=== PATIENT | male | born 1940 | race Caucasian/White ===

== ENCOUNTER 2016-07-14 08:28 | Inpatient (IN) | payer OTHER ==
[~2016-07-14] VITALS: Ht 180.3 cm; Wt 88.5 kg
--- NOTE | ~2016-07-14 | EKG ---
[place] [address] [facility] [place] [address] ELECTROCARDIOGRAM REPORT Name: JEFF BEAVER Room #: 310-P ADM IN M.R.#: [id number] Admission: 07/14/16 Attend Phys: Inderjit Bridges MD Discharge: Date of : 38 Report #: [id number] THIS REPORT FOR: //name// [facility] ED Test Date: 2016-07-14 Test Time: 08:34:16 Pat Name: JEFF BEAVER Department: Room: 310 Gender: M Mink Slicer: Rohith VILLALPANDO : 1940 Requested By: Melissa Watson Order Number: [id number] MD: Brennan Min Measurements Intervals [place] Rate: 86 P: 2 [place]: 174 QRS: -48 QRSD: 113 T: 136 QT: 418 QTc: 500 Interpretive Statements Sinus rhythm Probable left atrial enlargement Septal infarct, old LVH w/ repol abnormalities vs ischemia No previous ECG available for comparison Electronically Signed On 07-16-2016 7:32:47 CDT by Brennan Min [email or web address] <ELECTRONICALLY SIGNED> By: Brennan Min MD, [facility] 07/16/16 0732 3 3 Brennan Min MD, [facility] /EPI
--- NOTE | ~2016-07-14 | HC ---
[facility] [place] [address] CONSULTATION Name: JEFF BEAVER Room #: 310-P [facility] IN M.R.#: [id number] Admission: 07/14/16 Attend Phys: Inderjit Bridges MD Discharge: 07/16/16 Date of : 38 Report #: [id number] THIS REPORT FOR: //name// CC: Bayron Rivas DO Inderjit Bridges MD DATE OF SERVICE: 07/14/2016 REFERRING PROVIDER: Inderjit Bridges M.D. REASON FOR CONSULTATION: Shortness of breath and abnormal chest x-ray. HISTORY OF PRESENT ILLNESS: Our group was asked to see the patient in consultation while hospitalized at [facility], well known to me from prior office visits for mild obstructive lung disease and sleep apnea for which he has an orthotic device, which he has not been using, presents to the Emergency Department today with about 24 hours of increasing shortness of breath and some orthopnea. He denies any cough, chest pain, chest congestion, or wheezing. Tried his p.r.n. albuterol inhaler with no relief. Denies any other symptoms suggestive of a respiratory infection, no ill contacts. Has had some mild lower extremity edema. Presented to the Emergency Department. A chest x-ray revealed possible right mid lung infiltrate and pleural effusion on the right; however, also it appears that this right mid lung infiltrate may actually be fluid in the fissure. The patient also noted to have an elevated proBNP with a normal D-dimer, additional workup is pending. He feels better after some IV therapy in the ER, which included ceftriaxone and azithromycin. No diuretics or steroids noted. ALLERGIES: None known. PAST MEDICAL HISTORY: 1. History of aortic insufficiency and mitral regurgitation. 2. Hypertension. 3. Chronic obstructive pulmonary disease, not severe, typically just on p.r.n. albuterol. 4. History of prior mild cerebrovascular accident with minimal neurologic sequelae. 5. Noninsulin dependent diabetes mellitus type 2. 6. Obstructive sleep apnea, has a dental orthotic, which he p.r.n. 7. Prostatic hypertrophy. 8. Esophageal reflux. OUTPATIENT MEDICATIONS: Include finasteride, Levemir, metformin, glipizide, lisinopril, and hydrochlorothiazide. [address] [address] CONSULTATION Name: JEFF BEAVER Room #: 310-P DIS IN M.R.#: [id number] Admission: 07/14/16 Attend Phys: Inderjit Bridges MD Discharge: 07/16/16 Date of : 38 Report #: [id number] SOCIAL HISTORY: Ex-smoker, quit in 1974 with about one and a half pack per day tobacco use over 23 years. Rare alcohol consumption, currently lives independently. FAMILY HISTORY: Significant for father, who at 81 or cerebrovascular accident and pneumonia. Mother also had a CVA at 80. REVIEW OF SYSTEMS: CONSTITUTIONAL: Denies any fevers, chills, or sweats, change in weight or appetite. ENT: No upper respiratory congestion, rhinorrhea, or dysphagia. CARDIOVASCULAR: No chest pains or palpitations. GASTROINTESTINAL: No nausea, vomiting, diarrhea, constipation, or abdominal pain. GENITOURINARY: No dysuria, no frequency, or hematuria, known history of benign prostatic hypertrophy. INTEGUMENT: Denies any rash. MUSCULOSKELETAL: No other joint pains. No lower extremity edema and a current history of diabetes mellitus. PHYSICAL EXAMINATION: VITAL SIGNS: Afebrile, pulse 80, respiratory rate 12, blood pressure 160/85, and oxygen saturation 96% on room air. GENERAL: This is a pleasant elderly male, in no distress. HEENT: Clear oropharynx. No erythema. NECK: Supple, no lymphadenopathy. LUNGS: Relatively diminished, but clear. No wheezes or crackles. CARDIOVASCULAR: Regular. I could not appreciate any murmurs. ABDOMEN: Soft, nontender, no masses, no hepatosplenomegaly. EXTREMITIES: Only trace edema. They are warm with 2+ pulses. INTEGUMENT: No rash. LABORATORY DATA: White blood cell count 9000, hemoglobin 16, hematocrit 45, platelet count of 184, chemistry profile normal except for a glucose 236, troponin 0.12, BNP 5047. Chest x-ray as described. IMPRESSION: 1. Possible community-acquired pneumonia. To my view, radiographic findings more suggestive of pleural disease with maybe possible loculated pleural effusion. Would evaluate further with decubitus x-rays and consider CT of the chest and/or thoracentesis if clinically indicated. 2. Elevated BNP. Await echo and diuresis. 3. History of obstructive sleep apnea, currently on no therapy, has a dental orthotic, which he is not using at home. 4. Mild obstructive lung disease, no findings for significant bronchospasm on [facility] [address] [place] [address] CONSULTATION Name: JEFF BEAVER Room #: 310-P DIS IN M.R.#: [id number] Admission: 07/14/16 Attend Phys: Inderjit Bridges MD Discharge: 07/16/16 Date of : 38 Report #: [id number] exam today. 5. Diabetes mellitus type 2. SUGGESTIONS: 1. Continue Rocephin and azithromycin. 2. Await cultures. 3. Check decubitus radiographs of the chest. Consider CT imaging of the chest. 4. Await echo. 5. Further recommendations to follow. <ELECTRONICALLY SIGNED> By: Jack Graham MD 07/20/16 1807 1545 0058 Jack Graham MD /nt
--- NOTE | ~2016-07-14 | 2DMMODE ---
[facility] [place] [address] 2 D/M-MODE ECHOCARDIOGRAM Name: JEFF BEAVER Room #: 310-P [facility] IN [facility].#: [id number] Admission: 07/14/16 Attend Phys: Inderjit Bridges, Discharge: Date of : 38 Date of Service: 07/14/16 1711 Report #: [id number] THIS REPORT FOR: //name// APPROVED REPORT Study performed: 07/14/2016 14:09:43 EXAM: Comprehensive 2D, Doppler, and color-flow Echocardiogram Patient Location: Bedside Blood Pressure: 160/85 mmHg HR: 83 bpm Other Information Study Quality: Adequate Indications COPD Aortic Valve Disease Dyspnea Hypertension/HDD 2D Dimensions RVDd: 35.12 mm LVEF(%): 40.42 (>50%) IVSd: 12.26 (7-11mm) LVOT Diam: 23.42 (18-24mm) LVDd: 63.35 mm PWd: 12.30 (7-11mm) Ascending Aorta: 38.38 mm LVDs: 50.57 (25-40mm) IVC: 23.00 mm Aortic Root: 38.81 mm Mejia's LVEF: 40.42 % Volumes Left Atrial Volume (Systole) Single Plane 4CH: 108.12 mL Single Plane 2CH: 71.31 mL LA ESV Index: 48.00 mL/m2 Aortic Valve AoV Peak Newton.: 1.74 m/s AI PHT: 509.57 ms AO Peak Gr.: 12.15 mmHg LV Max P.94 mmHg LV Max: 0.99 m/s AI Vmax: 4.06 m/s AI Knott: 2.31 m/s2 [facility] [place] [address] [place] [address] 2 D/M-MODE ECHOCARDIOGRAM Name: JEFF BEAVER Room #: 310-P ADM IN .R.#: [id number] Admission: 07/14/16 Attend Phys: Inderjit Bridges, Discharge: Date of : 38 Date of Service: 07/14/16 1711 Report #: [id number] Mitral Valve MV PHT: 67.69 ms MV E Max Newton.: 0.75 m/s E/A Ratio: 0.9 MV A Newton.: 0.86 m/s MV Decel. Time: 233.42 ms Pulmonary Valve PV Peak Newton.: 0.97 m/s PV Peak Gr.: 3.78 mmHg Tricuspid Valve TR Peak Newton.: 3.23 m/s RAP Estimate: 10.00 mmHg TR Peak Gr.: 41.67 mmHg Left Ventricle Left ventricle is dilated. There is hypokinesis in the mid-apical anteroseptal wall. Mild concentric left ventricular hypertrophy. Left ventricular systolic function is moderately decreased. LVEF is 35%. Grade I - abnormal relaxation pattern. Right Ventricle The right ventricle is normal size. The right ventricular systolic function is normal. Atria Left atrium is dilated. The right atrium size is normal. Aortic Valve Aortic valve is trileaflet. Aortic valve is calcified. Mild aortic regurgitation. There is no aortic valvular stenosis. Mitral Valve The mitral valve is normal in structure. Mild mitral regurgitation. Tricuspid Valve The tricuspid valve is normal in structure. There is mild tricuspid regurgitation. The right atrial pressure is estimated at 10 mmHg. There is moderate pulmonary hypertension. The estimated PAP was 52 mmHg. Pulmonic Valve The pulmonary valve is normal in structure. Trace pulmonic regurgitation. Great Vessels There is mild aortic root dilation. IVC is normal in size and collapses <50% with inspiration. [address] [address] 2 D/M-MODE ECHOCARDIOGRAM Name: JEFF BEAVER Room #: 310-P [facility] IN .R.#: [id number] Admission: 07/14/16 Attend Phys: Inderjit Bridges, Discharge: Date of : 38 Date of Service: 07/14/16 1711 Report #: [id number] Pericardium There is no pericardial effusion. <Conclusion> Left ventricle is dilated. Left ventricular systolic function is moderately decreased. There is hypokinesis in the mid-apical anteroseptal wall. The right ventricle is normal size. Left atrium is dilated. Mild aortic regurgitation. Mild mitral regurgitation. There is mild tricuspid regurgitation. The right atrial pressure is estimated at 10 mmHg. There is moderate pulmonary hypertension. The estimated PAP was 52 mmHg. <ELECTRONICALLY SIGNED> By: Nathanael Hoffman MD 07/14/161710 10 10 Nathanael Hoffman MD /INF
[~2016-07-14 08:28] MED LIST: ADVAIR 100-501 EACH; FISH OIL 1,0001 EAC5; GLUCOPHAGE500 MG PO; GLUCOTROL5 MG PO; KLOR-CON 1010 MEQ; LISINOPRIL10 MG; METHOCARBAMOL500 M1; OMEPRAZOLE 20 M20 M1; SIMVASTATIN40 MG; TRIAMTERENE/HCT1 CA1
[2016-07-14 08:30] VITALS: BP 170/108
[2016-07-14 09:11] LABS: ABSOLUTE NEUTROPHILS 6.9 thou/uL (1.4-8.2); BASOPHILS 0.8 % (0.0-2.0); EOSINOPHILS 0.3 % (0.0-3.0); HEMATOCRIT 44.5 % (42.0-52.0); HEMOGLOBIN 15.8 gm/dL (14.0-18.0); LYMPHOCYTES 13.5 % (24.0-44.0); MCH 30.9 pg (26.0-34.0); MCHC 35.4 g/dL (28.0-37.0); MCV 87.1 fL (80.0-100.0); PLATELET COUNT 184 thou/uL (150-400); POLYS 80.4 % (36.0-66.0); RBC 5.11 mil/uL (4.50-6.00); RDW 13.7 % (10.5-14.5); WBC 8.6 thou/uL (4.0-11.0)
[2016-07-14 09:12] LABS: MANUAL DIFF NO
[2016-07-14 09:20] LABS: CALCIUM 8.2 mg/dL (8.5-10.1); CREATININE 0.9 mg/dL (0.7-1.3)
[2016-07-14 09:32] LABS: TROPONIN-I 0.12 ng/mL (<0.04-0.07)
[2016-07-14] MEDS ORDERED: GABAPENTIN 100100 MG PO (10:20)
[2016-07-14] MEDS ORDERED: LEVEMIR FL100 UNIT/2 SQ (10:20)
[2016-07-14] MEDS ORDERED: FLOMAX0.4 MG PO (10:21)
[2016-07-14] MEDS ORDERED: FLUTICASONE PRO16 GM NS (10:21)
[2016-07-14] MEDS ORDERED: VENTOLIN HFA 1818 GM INH (10:22)
[2016-07-14] MEDS ORDERED: LISINOPRIL40 MG PO (10:23)
[2016-07-14] MEDS ORDERED: HYDROCHLOROTHIA25 M2 PO (10:24)
[2016-07-14] MEDS ORDERED: ATORVASTATIN CA40 MG PO (10:28)
[2016-07-14] MEDS ORDERED: FINASTERIDE5 MG PO (10:28)
[2016-07-14 10:42] VITALS: BP 160/85
[2016-07-14 16:05] VITALS: BP 176/100
[2016-07-14 19:22] VITALS: BP 163/94
[2016-07-15 00:25] VITALS: BP 136/74
[2016-07-15 04:18] VITALS: BP 144/70
[2016-07-15 07:19] VITALS: BP 168/89
[2016-07-15 09:21] LABS: CALCIUM 8.6 mg/dL (8.5-10.1); CREATININE 0.9 mg/dL (0.7-1.3); POTASSIUM 3.9 mmol/L (3.5-5.1)
[2016-07-15 09:25] LABS: HEMATOCRIT 44.5 % (42.0-52.0); HEMOGLOBIN 15.4 gm/dL (14.0-18.0); MCH 30.9 pg (26.0-34.0); MCHC 34.7 g/dL (28.0-37.0); MCV 89.1 fL (80.0-100.0); RBC 4.99 mil/uL (4.50-6.00); RDW 13.6 % (10.5-14.5); WBC 7.9 thou/uL (4.0-11.0)
[2016-07-15 11:09] VITALS: BP 147/85
[2016-07-15 16:17] VITALS: BP 119/74
[2016-07-15 20:00] VITALS: BP 134/81
[2016-07-16 04:00] VITALS: BP 141/68
[2016-07-16 05:48] LABS: CALCIUM 8.8 mg/dL (8.5-10.1); CREATININE 1.1 mg/dL (0.7-1.3); POTASSIUM 3.8 mmol/L (3.5-5.1)
[2016-07-16] MEDS ORDERED: ASPIR 8181 MG PO (10:22)
[2016-07-16] MEDS ORDERED: LASIX 40 MG TAB40 M1 PO (10:22)
[2016-07-16 10:34] VITALS: BP 142/66
[2016-07-16 11:02] VITALS: BP 142/66
[2016-07-16] MEDS ORDERED: LEVAQUIN 750 M750 MG PO (11:11)
== END 2016-07-16 11:50 | disposition home or self-care (01) | DRG 291 ==
LOC: ER 08:28 → 3N 10:07 → EROBS 10:07 → 3N 10:54
PROVIDERS: Emergency Medicine; Internal Medicine; Internal Medicine Cardiovascular Disease
DX: I11.0 Hypertensive heart disease with heart failure (principal); J18.9 Pneumonia, unspecified organism; J90 Pleural effusion, not elsewhere classified; J44.0 Chronic obstructive pulmonary disease with (acute) lower respiratory infection; I50.21 Acute systolic (congestive) heart failure; I42.9 Cardiomyopathy, unspecified; E11.9 Type 2 diabetes mellitus without complications; G47.33 Obstructive sleep apnea (adult) (pediatric); K21.9 Gastro-esophageal reflux disease without esophagitis; E78.5 Hyperlipidemia, unspecified; N40.1 Benign prostatic hyperplasia with lower urinary tract symptoms; Z79.82 Long term (current) use of aspirin; Z86.73 Personal history of transient ischemic attack (TIA), and cerebral infarction without residual deficits; Z87.891 Personal history of nicotine dependence; Z90.49 Acquired absence of other specified parts of digestive tract; Z82.3 Family history of stroke; Z83.6 Family history of other diseases of the respiratory system; Z79.899 Other long term (current) drug therapy
CPT/HCPCS: 10096

== ENCOUNTER → 2016-08-05 | Outpatient (CLI) | payer OTHER ==
[~2016-08-05] VITALS: Ht 180.3 cm; Wt 87.1 kg
[~2016-08-05] MED LIST changes: +ASPIR 8181 MG PO; +ATORVASTATIN CA40 MG PO; +COREG6.25 MG PO; +FINASTERIDE5 MG PO; +FLOMAX0.4 MG PO; +FLUTICASONE PRO16 GM NS; +GABAPENTIN 100100 MG PO; +HYDROCHLOROTHIA25 M2 PO; +LASIX 40 MG TAB40 M1 PO; +LEVAQUIN 750 M750 MG PO; +LEVEMIR FL100 UNIT/2 SQ; +LISINOPRIL40 MG PO; +VENTOLIN HFA 1818 GM INH
--- NOTE | ~2016-08-05 | EKG ---
[facility] [place] [address] ELECTROCARDIOGRAM REPORT Name: JEFF BEAVER [id number] Admission: 08/05/16 Attend Phys: Nathanael Hoffman MD Discharge: Date of : 39 Report #: [id number] THIS REPORT FOR: //name// [facility] Test Date: 2016-08-05 Test Time: 07:07:31 Pat Name: JEFF BEAVER Department: Room: Gender: Order To Delivery Supervisor: Estelle BUTTERFIELD : 1940 Requested By: Nathanael Hoffman Order Number: [id number] MD: Brennan Min Measurements Intervals [place] Rate: 65 P: -19 [place]: 187 QRS: -54 QRSD: 125 T: 143 QT: 464 QTc: 483 Interpretive Statements Sinus rhythm Probable left atrial enlargement T wave abnormality, consider anterolateral ischemia Left ventricular hypertrophy Compared to ECG 07/14/2016 08:34:16 ST and T wave abnormality is slightly more prominent Electronically Signed On 08-06-2016 8:11:30 CDT by Brennan Min [email or web address] <ELECTRONICALLY SIGNED> By: Brennan Min MD, [facility] 08/06/16810 6 6 Brennan Min MD, [facility] /EPI
--- NOTE | ~2016-08-05 | CATHLAB ---
[facility] [address] [place] [address] INVASIVE PROCEDURE REPORT Name: SARANYAJEFF Africa Room #: REG [place]ane#: [id number] Admission: 08/05/16 Attend Phys: Nathanael Hoffman MD Discharge: Date of : 38 Date of Service: 08/05/16911 Report #: [id number] THIS REPORT FOR: //name// CC: Bayron Hoffman CARDIAC CATHETERIZATION REPORT INDICATIONS: Congestive heart failure, moderate LV dysfunction. Full risks, benefits and alternatives of cardiac catheterization were explained to the patient and all questions were answered. Informed consent was obtained. A Barbeau test was performed on the right radial artery. The right wrist area was prepped and draped in a sterile manner. Lidocaine was given subcutaneously. A 5-Niuean sheath was inserted into the right radial artery via modified Seldinger technique. Nitroglycerin and verapamil was injected through the sheath. 5000 units of heparin was introduced for peripheral IV. CORONARY ANATOMY: The LAD is calcified in the proximal area. The LAD travels down the anterior wall and wraps around the apex. There is a severe stenosis in the proximal segment of the LAD, 80%. After this stenosis, there is a takeoff of the first diagonal artery, with no flow-limiting lesions. The left circumflex supplies 1 moderate size obtuse marginal artery. In the proximal segment, there is a severe 70% stenosis. The RCA is a moderate to large size caliber vessel, dominant, as it supplies a PDA and several posterolateral branches. The RCA is calcified and tortuous. In the proximal segment of the RCA, there is an eccentric lesion, 70%. A left ventriculogram was not performed secondary to tortuosity involving the right subclavian artery. IMPRESSION: 1. Severe 3-vessel disease. 2. Known to have moderate segmental LV dysfunction with clinical evidence for heart failure. 3. Recommend surgical evaluation for surgery. <ELECTRONICALLY SIGNED> By: Nathanael Hoffman MD 08/06/16 0910 0912 1045 Nathanael Hoffman MD /nt
[2016-08-05 07:21] VITALS: BP 162/61
[2016-08-05 07:29] LABS: HEMATOCRIT 43.1 % (42.0-52.0); HEMOGLOBIN 15.3 gm/dL (14.0-18.0); MCH 31.1 pg (26.0-34.0); MCHC 35.4 g/dL (28.0-37.0); MCV 87.7 fL (80.0-100.0); RBC 4.92 mil/uL (4.50-6.00); RDW 13.4 % (10.5-14.5); WBC 6.2 thou/uL (4.0-11.0)
[2016-08-05 07:38] LABS: CALCIUM 8.2 mg/dL (8.5-10.1); POTASSIUM 4.2 mmol/L (3.5-5.1)
== END ==
LOC: CATH 06:31
PROVIDERS: Internal Medicine Cardiovascular Disease
DX: I50.1 Left ventricular failure, unspecified (principal); I50.9 Heart failure, unspecified

== ENCOUNTER 2016-08-17 21:59 | Inpatient (IN) | payer OTHER ==
[~2016-08-17] VITALS: Ht 180.3 cm; Wt 86.7 kg
--- NOTE | ~2016-08-17 | O ---
[facility] [place] [address] OPERATIVE REPORT Name: JEFF BEAVER Room #: 217-P [facility] IN M.R.#: [id number] Admission: 08/17/16 Attend Phys: Esther Booth Discharge: 08/24/16 Date of : 38 Report #: [id number] THIS REPORT FOR: //name// CC: Bayron Booth DATE OF SERVICE: 08/19/2016 PREOPERATIVE DIAGNOSIS: Coronary artery disease. POSTOPERATIVE DIAGNOSIS: Coronary artery disease. OPERATION: Coronary artery bypass x 4 including left internal mammary artery to left anterior descending artery, saphenous vein to diagonal and marginal and saphenous vein to posterior descending artery and endoscopic harvest, greater saphenous vein. SURGEON: Haroon Salas MD SCRATCH POLISHER: Seth. ANESTHESIA: General. INDICATIONS: The patient is a 75-year-old with coronary artery disease, catheterization presents important 3-vessel disease. FINDINGS AND TECHNIQUE: After general anesthesia was established, saphenous vein was harvested using an endoscopic approach and prepared for use as a conduit. Exposure was obtained through median sternotomy. Left internal mammary artery was harvested. Pericardial well was made. Cannulation sutures were placed. Heparin was given antegrade, then retrograde cardioplegia were given. Ice was poured in the pericardial well. The heart was stopped. During electromechanical arrest, the distal anastomoses were performed and end-to-side anastomosis was made between vein and the posterior descending artery. Cold cardioplegia was given. Separate segment of vein was sewn in end-to-side fashion to the marginal artery. Cold cardioplegia was given. Same segment of vein was sewn in saeq-ny-ggks fashion to the diagonal artery. Cold cardioplegia was given. Left internal mammary artery was sewn in end-to-side fashion to left anterior descending artery. Patency of this vessel was checked with the temperature technique. Cold cardioplegia was given. Two proximal anastomoses were performed. When this was complete, warm retrograde cardioplegia was given followed by warm continuous blood to the coronary sinus. When this infusion was complete, the crossclamp was removed, de-airing maneuvers were performed. The anastomoses were inspected and found to be satisfactory. [facility] [address] [place] [address] OPERATIVE REPORT Name: JEFF BEAVER Room #: 217-P [facility] IN M.R.#: [id number] Admission: 08/17/16 Attend Phys: Esther Booth Discharge: 08/24/16 Date of : 38 Report #: [id number] As the patient warmed, nice cardiac activity resumed, chest tubes and pacing wires were placed, a marker was placed around the proximal anastomoses. When the patient was warmed, he was weaned from cardiopulmonary bypass. Venous cannula was removed. Protamine was given, the aortic cannula was removed. Flows were measured in the bypass grafts and a good Doppler signal was audible in the internal mammary artery. When hemostasis was satisfactory, chest was irrigated with antibiotic solution and closed in the usual fashion. The patient was taken to the Intensive Care Unit in good condition having tolerated the procedure well. All counts reported as correct. By: 1003 1136 Haroon Salas MD /nt
--- NOTE | ~2016-08-17 | EKG ---
[address] [address] ELECTROCARDIOGRAM REPORT Name: SARANYAJEFF Africa Room #: 217-P ADM IN M.R.#: [id number] Admission: 08/17/16 Attend Phys: Esther Booth Discharge: Date of : 38 Report #: [id number] THIS REPORT FOR: //name// [facility] Test Date: 2016-08-23 Test Time: 07:40:43 Pat Name: JEFF BEAVER Department: Room: 217 P Gender: M Maternal Fetal Physician: SHELLY : 1940 Requested By: Nita Davies Order Number: [id number] MD: Jun Farfan Measurements Intervals [place] Rate: 65 P: 28 [place]: 172 QRS: -52 QRSD: 126 T: 124 QT: 479 QTc: 499 Interpretive Statements Sinus rhythm LVH with IVCD, LAD and secondary repol abnrm Electronically Signed On 08-24-2016 8:50:04 CDT by Jun Farfan [email or web address] <ELECTRONICALLY SIGNED> By: Jun Farfan MD 08/24/16 0850 0740 0740 Jun Farfan MD /CHRISTY
--- NOTE | ~2016-08-17 | EKG ---
[address] [place] [address] ELECTROCARDIOGRAM REPORT Name: JEFF BEAVER Room #: 217-P ADM IN M.R.#: [id number] Admission: 08/17/16 Attend Phys: Esther Booth Discharge: Date of : 38 Report #: [id number] THIS REPORT FOR: //name// [facility] ED Test Date: 2016-08-17 Test Time: 22:06:27 Pat Name: JEFF BEAVER Department: Room: 217 Gender: M Marking Stitcher: MIKIE : 1940 Requested By: Treva Chi Order Number: [id number] MD: Brennan Min Measurements Intervals [place] Rate: 103 P: 45 [place]: 180 QRS: -52 QRSD: 113 T: 112 QT: 356 QTc: 466 Interpretive Statements Sinus tachycardia LVH with IVCD, LAD and secondary repol abnrm Anterior ST elevation, probably due to LVH Compared to ECG 08/05/2016 07:07:[address] and T wave abnormality more pronounced Electronically Signed On 08-24-2016 7:19:29 CDT by Brennan Min [email or web address] <ELECTRONICALLY SIGNED> By: Brennan Min MD, [facility] 08/24/16 0719 05 Brennan Min MD, [facility] /EPI
--- NOTE | ~2016-08-17 | EKG ---
[address] [place] [address] ELECTROCARDIOGRAM REPORT Name: JEFF BEAVER Room #: 217-P ADM IN M.R.#: [id number] Admission: 08/17/16 Attend Phys: Esther Booth Discharge: Date of : 38 Report #: [id number] THIS REPORT FOR: //name// [facility] ED Test Date: 2016-08-17 Test Time: 23:24:55 Pat Name: JEFF BEAVER Department: Room: 217 Gender: M Supervisor Fur Floor Worker: REYNOLD : 1940 Requested By: Treva Chi Order Number: [id number] MD: Jun Farfan Measurements Intervals [place] Rate: 132 P: -48 [place]: 131 QRS: -63 QRSD: 140 T: 92 QT: 403 QTc: 597 Interpretive Statements Sinus or ectopic atrial tachycardia Left bundle branch block Baseline wander in lead(s) V2 Compared to ECG 08/05/2016 07:07:31 Left bundle-branch block now present Sinus rhythm no longer present T-wave abnormality no longer present Possible ischemia no longer present Left ventricular hypertrophy no longer present Electronically Signed On 08-24-2016 7:37:21 CDT by Jun Farfan [email or web address] <ELECTRONICALLY SIGNED> By: Jun Farfan MD 08/24/16 0737 2324 2324 Jun Farfan MD /EPI
--- NOTE | ~2016-08-17 | HC ---
[facility] [place] [address] CONSULTATION Name: SARANYAJEFF Africa Room #: 217-P [facility]..#: [id number] Admission: 08/17/16 Attend Phys: Esther Booth Discharge: 08/24/16 Date of : 38 Report #: [id number] THIS REPORT FOR: //name// CC: Bayron Booth DATE OF SERVICE: 08/21/2016 HISTORY OF PRESENT ILLNESS: The patient is a 75-year-old white male who was admitted through the Emergency Department with increased shortness of breath. The patient recently been hospitalized from 07/14/2016 through 07/16/2016 with pneumonia. He was doing better and then had worsening shortness of breath. Upon readmission, he was noted to have acute on chronic systolic congestive heart failure with non-ST elevation TN. He was noted to have severe 3-vessel coronary artery disease and ended up undergoing coronary artery bypass grafting x 4 on 08/19/2016. He continues in the intensive care unit. He has had some problems with heart failure with flash pulmonary edema, which has improved post diuresis. He is on amiodarone. We are seeing him in rehabilitation medicine consultation. PAST MEDICAL HISTORY: Includes the prior noted pneumonia. He has a history of CHF, he had a CVA in 2011, insulin-dependent diabetes mellitus, hypertension, COPD, elevated cholesterol. ALLERGIES: No known drug allergies. MEDICATIONS: Please see the full medication listing. PAST SURGICAL HISTORY: As noted above. He had the coronary artery bypass grafting. HABITS: One pack per day smoker for 23 years, quit greater than a year ago. History of ETOH 1-2 beers per week. SOCIAL HISTORY: Lives in a house with his , 4 steps in, was on home O2 p.r.n. at night. Did not utilize gait aids per report. REVIEW OF SYSTEMS: Somewhat difficult with his mental status. He is currently in the ICU and is rather groggy and somnolent. No obvious current chest pain, shortness of breath, abdominal discomfort or focal extremity pain complaints. No complaints of headache or obvious neurologic complaints. PHYSICAL EXAMINATION: A 75-year-old white male seen in the intensive care unit. VITAL SIGNS: Blood pressure 111/67, pulse 71, respirations 19. The patient is sleepy, but does arouse. Facies appeared symmetric. GENERAL: He is a bald 75-year-old white male, appears somewhat younger than [address] [address] CONSULTATION Name: SARANYAJEFF Africa Room #: 217-P [facility] IN ..#: [id number] Admission: 08/17/16 Attend Phys: Esther Booth Discharge: 08/24/16 Date of : 38 Report #: [id number] stated age. NEUROLOGIC: Midline sternal incision is dressed. He will follow basic 1 step commands, but then drift back off to sleep. Moves all four extremities. There is no obvious focal weakness. Left leg is dressed from the graft site. 1+ distal lower extremity edema. No focal weakness was noted either upper or lower extremity. Tone appeared to be intact. I was unable to adequately assess sensation. He was min assist with sit to stand and has done some limited marching in place. ASSESSMENT: A 75-year-old white male with the following problems: 1. Medical complexity with generalized debilitation. 2. Severe 3-vessel coronary artery disease, now status post coronary artery bypass grafting x 4 on 08/19/2016. 3. Non-ST elevation myocardial infarction. 4. Acute on chronic systolic congestive heart failure with subsequent flash pulmonary edema. 5. Diabetes mellitus type 2, uncontrolled. 6. Hypertensive urgency. 7. Obstructive sleep apnea. 8. Hyperlipidemia. 9. Recent pneumonia. 10. Past history of tobacco abuse. PLAN: Therapy evaluations are underway. He is currently continuing in the intensive care unit. We will see how he does in therapies and be glad to follow regarding his rehabilitation therapy needs as he further medically stabilizes. Thank you for asking us to assist in this patient's care. We will be glad to follow along with you. <ELECTRONICALLY SIGNED> By: Bayron Adkins MD 08/25/16 1157 1359 0158 Bayron Adkins MD /nt
--- NOTE | ~2016-08-17 | EKG ---
[address] [employer] [place] [address] ELECTROCARDIOGRAM REPORT Name: JEFF BEAVER Room #: 217-P ADM IN M.R.#: [id number] Admission: 08/17/16 Attend Phys: Esther Booth Discharge: Date of : 38 Report #: [id number] THIS REPORT FOR: //name// [facility] Test Date: 2016-08-19 Test Time: 15:31:42 Pat Name: JEFF BEAVER Department: Room: [facility] Gender: M Director Of Event Sales: RAKESH : 1940 Requested By: Jake Ann Order Number: [id number] MD: Jun Farfan Measurements Intervals [place] Rate: 62 P: -6 RI: 189 QRS: -61 QRSD: 129 T: 147 QT: 508 QTc: 516 Interpretive Statements Sinus rhythm Probable left atrial enlargement Left bundle branch block Lateral t wave inversion consider ischemia Electronically Signed On 08-24-2016 8:05:44 CDT by Jun Farfan [email or web address] <ELECTRONICALLY SIGNED> By: Jun Farfan MD 08/24/16 0805 153 30 Jun Farfan MD /CHRISTY
--- NOTE | ~2016-08-17 | HC ---
[facility] [place] [address] CONSULTATION Name: JEFF BEAVER [place] Room #: 217-P [facility] IN M.R.#: [id number] Admission: 08/17/16 Attend Phys: Esther Booth Discharge: Date of : 38 Report #: [id number] THIS REPORT FOR: //name// CC: Bayron Booth DATE OF SERVICE: 08/22/2016 REASON FOR CONSULTATION: Obstructive sleep apnea. IMPRESSION: 1. History of obstructive sleep apnea. 2. History of asthma. 3. Status post 4 vessel coronary artery bypass grafting. 4. Congestive heart failure and cardiomyopathy, ejection fraction 35%. 5. Hypertension. 6. Hyperlipidemia. 7. History of pneumonia. 8. Thrombocytopenia. PLAN: Continue pulmonary toilet. We will try CPAP tonight if tolerates. He will get his home appliance fixed in the future; however, has been quite a while since he has used this also. HISTORY OF PRESENT ILLNESS: The patient admitted 08/18/2016, had a coronary artery bypass x 4, AMADOR to LAD, AO to diagonal and marginal, AO to PDA, endoscopic harvest left greater saphenous vein. The patient has been having episodes of encephalopathy and nurse told this morning, the patient was having periods of sleep apnea and we are asked to consult. The patient was adamant that he could not tolerate CPAP in the mask, but willing to try again. He has not used his oral appliance. Last seen in office by Dr. Graham 06/2015, and was given albuterol p.r.n. He also saw him earlier this year when the patient was in with Community-acquired pneumonia and small right effusion. CURRENT MEDICATIONS: Losartan, Levemir, Pepcid, Lipitor, melatonin, Pacerone, Coreg, Colace, aspirin. ALLERGIES: None known. PAST MEDICAL HISTORY: Include insufficiency, mitral regurgitation, hypertension, COPD, mild CVA, noninsulin-dependent diabetes, prostatic hypertrophy, and GERD. SOCIAL HISTORY: Quit smoking in 74, about 1-1/2 packs per day for 23 years, rare ETOH. [facility] [address] [place] [address] CONSULTATION Name: JEFF BEAVER Room #: 217-P [facility] IN M.R.#: [id number] Admission: 08/17/16 Attend Phys: Esther Booth Discharge: Date of : 38 Report #: [id number] FAMILY HISTORY: Positive for CVA and pneumonia. REVIEW OF SYSTEMS: Confusion, no current increased shortness of breath, cough, pain related to surgery currently, no dysuria, no hemoptysis or hematemesis. PHYSICAL EXAMINATION: VITAL SIGNS: Temp 97.4, pulse 73, respirations 22, BP 152/73. EYES: Negative icterus. NECK: Negative JVD. LUNGS: Showed decreased breath sounds at bases. HEART: Regular, surgical wounds noted. ABDOMEN: Bowel sounds present. EXTREMITIES: Showed no cyanosis or clubbing. LABORATORY DATA: Chest x-ray yesterday showed cardiomegaly, no focal infiltrate. CT head yesterday showed no acute decrease in attenuation; right basilar ganglia, internal new since 2012, suggest chronic infarct, old lacunar infarct. BUN 29, creatinine 0.9. White count 11.4, hemoglobin 12.1, platelets 102. We will follow closely with you. <ELECTRONICALLY SIGNED> By: Amrit Fernández MD 08/23/16 1449 1414 [id number] Amrit Fernández MD /nt
--- NOTE | ~2016-08-17 | EKG ---
[place] [address] [employer] [place] [address] ELECTROCARDIOGRAM REPORT Name: JEFF BEAVER Room #: 217-P ADM IN M.R.#: [id number] Admission: 08/17/16 Attend Phys: Esther Booth Discharge: Date of : 38 Report #: [id number] THIS REPORT FOR: //name// 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
[2016-08-17 22:19] VITALS: BP 185/109
[2016-08-17 22:53] LABS: ABSOLUTE NEUTROPHILS 5.9 thou/uL (1.4-8.2); BASOPHILS 1.1 % (0.0-2.0); EOSINOPHILS 1.7 % (0.0-3.0); HEMATOCRIT 45.3 % (42.0-52.0); HEMOGLOBIN 15.7 gm/dL (14.0-18.0); LYMPHOCYTES 21.7 % (24.0-44.0); MCHC 34.6 g/dL (28.0-37.0); MCV 89.6 fL (80.0-100.0); MONOCYTES 6.8 % (1.0-8.0); PLATELET COUNT 176 thou/uL (150-400); POLYS 68.7 % (36.0-66.0); RBC 5.06 mil/uL (4.50-6.00); RDW 13.8 % (10.5-14.5); WBC 8.6 thou/uL (4.0-11.0)
[2016-08-17 22:57] LABS: MANUAL DIFF NO
[2016-08-17 23:03] LABS: CREATININE 1.1 mg/dL (0.7-1.3)
[2016-08-18] VITALS (27 sets, daily range): BP systolic 109–149; BP diastolic 62–91
[2016-08-18] MEDS ORDERED: LASIX 40 MG TAB40 M2 PO (03:04)
[2016-08-18 05:22] LABS: ANION GAP 11 mmol/L (7-16); BUN 13 mg/dL (7-18); CHLORIDE 104 mmol/L (98-107); CHOLESTEROL 241 mg/dL (<200); CO2 25 mmol/L (21-32); CREATININE 1.2 mg/dL (0.7-1.3); GLUCOSE 309 mg/dL (74-106); HDL CHOLESTEROL 44 mg/dL (>40); LDL CHOLESTEROL 169 mg/dL (<100); MAGNESIUM 1.6 mg/dL (1.8-2.4); POTASSIUM 3.9 mmol/L (3.5-5.1); SODIUM 140 mmol/L (136-145); TC:HDL 5.5 Ratio (Not establshd); TRIGLYCERIDE 140 mg/dL (<150); VLDL 28 mg/dL (<40)
[2016-08-18 05:26] LABS: SERUM ASSESSMENT Clear
[2016-08-18 05:27] LABS: TROPONIN-I 13.06 ng/mL (<0.04-0.07)
[2016-08-18 08:28] LABS: HEMATOCRIT 43.9 % (42.0-52.0); HEMOGLOBIN 15.2 gm/dL (14.0-18.0); MCH 30.7 pg (26.0-34.0); MCHC 34.6 g/dL (28.0-37.0); MCV 88.7 fL (80.0-100.0); RBC 4.95 mil/uL (4.50-6.00); RDW 13.7 % (10.5-14.5); WBC 10.1 thou/uL (4.0-11.0)
[2016-08-18 08:46] LABS: APTT 22.7 Seconds (24.5-32.8); PROTIME 10.1 Seconds (9.3-11.4)
[2016-08-18 09:44] LABS: POTASSIUM 3.4 mmol/L (3.5-5.1)
[2016-08-18 09:54] LABS: ALBUMIN 3.8 g/dL (3.4-5.0); TOTAL BILIRUBIN 1.4 mg/dL (<0.1-1.0); TOTAL PROTEIN 7.2 g/dL (6.4-8.2)
[2016-08-18 17:48] LABS: URINE BILIRUBIN NEGATIVE (Negative); URINE BLOOD NEGATIVE (Negative); URINE COLOR YELLOW; URINE GLUCOSE-RANDOM* TRACE (Negative); URINE KETONES NEGATIVE (Negative); URINE LEUKOCYTES-REFLEX NEGATIVE (Negative); URINE PROTEIN (DIPSTICK) NEGATIVE (Negative); URINE UROBILINOGEN 0.2 E.U./dl (0.2-1.0)
[2016-08-19] VITALS (12 sets, daily range): BP systolic 93–134; BP diastolic 57–111
[2016-08-19 04:07] LABS: GLYCOHEMOGLOBIN (HGB A1C) 7.5 % (4.8-5.6)
[2016-08-19 04:52] LABS: MAGNESIUM 1.8 mg/dL (1.8-2.4); POTASSIUM 3.4 mmol/L (3.5-5.1)
[2016-08-19 14:22] LABS: POC BE 1 mmol/L (-2.0 to +3.0); POC CA IONIZED 4.6 mg/dL (4.5-5.3); POC FiO2 100 %; POC GLUCOSE 176 mg/dL (70-99); POC HCO3 25.6 mmol/L (22.0-26.0); POC HEMOGLOBIN 13.6 g/dL (14.0-18.0); POC POTASSIUM 4.2 mmol/L (3.5-5.1); POC SODIUM 137 mmol/L (136-145); POC pCO2 39.4 mmHg (35.0-45.0)
[2016-08-19 14:22] LABS: POC BE 1 mmol/L (-2.0 to +3.0); POC CA IONIZED 4.2 mg/dL (4.5-5.3); POC FiO2 80 %; POC GLUCOSE 112 mg/dL (70-99); POC HEMOGLOBIN 10.5 g/dL (14.0-18.0); POC POTASSIUM 4.4 mmol/L (3.5-5.1); POC SODIUM 136 mmol/L (136-145); POC pCO2 46.4 mmHg (35.0-45.0); POC pH 7.357 (7.360-7.450)
[2016-08-19 14:27] LABS: POC BE 0 mmol/L (-2.0 to +3.0); POC CA IONIZED 4.5 mg/dL (4.5-5.3); POC FiO2 100 %; POC GLUCOSE 143 mg/dL (70-99); POC HCO3 24.2 mmol/L (22.0-26.0); POC HEMOGLOBIN 13.3 g/dL (14.0-18.0); POC POTASSIUM 3.9 mmol/L (3.5-5.1); POC SODIUM 138 mmol/L (136-145); POC pCO2 38.2 mmHg (35.0-45.0); POC pH 7.409 (7.360-7.450)
[2016-08-19 14:27] LABS: POC BE 1 mmol/L (-2.0 to +3.0); POC CA IONIZED 6.6 mg/dL (4.5-5.3); POC FiO2 100 %; POC GLUCOSE 124 mg/dL (70-99); POC HCO3 27.2 mmol/L (22.0-26.0); POC HEMOGLOBIN 10.2 g/dL (14.0-18.0); POC POTASSIUM 4.7 mmol/L (3.5-5.1); POC SODIUM 138 mmol/L (136-145); POC pCO2 54.7 mmHg (35.0-45.0); POC pH 7.304 (7.360-7.450)
[2016-08-19 14:27] LABS: POC BE 1 mmol/L (-2.0 to +3.0); POC CA IONIZED 4.1 mg/dL (4.5-5.3); POC FiO2 100 %; POC GLUCOSE 115 mg/dL (70-99); POC HCO3 26.8 mmol/L (22.0-26.0); POC HEMOGLOBIN 11.2 g/dL (14.0-18.0); POC POTASSIUM 4.2 mmol/L (3.5-5.1); POC SODIUM 138 mmol/L (136-145); POC pCO2 48.2 mmHg (35.0-45.0); POC pH 7.354 (7.360-7.450)
[2016-08-19 14:27] LABS: POC BE 0 mmol/L (-2.0 to +3.0); POC CA IONIZED 4.3 mg/dL (4.5-5.3); POC FiO2 80 %; POC GLUCOSE 112 mg/dL (70-99); POC HCO3 25.7 mmol/L (22.0-26.0); POC HEMOGLOBIN 10.9 g/dL (14.0-18.0); POC POTASSIUM 4.4 mmol/L (3.5-5.1); POC SODIUM 138 mmol/L (136-145); POC pCO2 45.8 mmHg (35.0-45.0); POC pH 7.357 (7.360-7.450)
[2016-08-19 14:27] LABS: POC BE -3 mmol/L (-2.0 to +3.0); POC CA IONIZED 4.7 mg/dL (4.5-5.3); POC FiO2 100 %; POC GLUCOSE 110 mg/dL (70-99); POC HCO3 21.4 mmol/L (22.0-26.0); POC HEMOGLOBIN 11.2 g/dL (14.0-18.0); POC POTASSIUM 3.7 mmol/L (3.5-5.1); POC SODIUM 141 mmol/L (136-145); POC pCO2 33.9 mmHg (35.0-45.0); POC pH 7.408 (7.360-7.450)
[2016-08-19 14:27] LABS: POC BE -1 mmol/L (-2.0 to +3.0); POC FiO2 100 %; POC GLUCOSE 122 mg/dL (70-99); POC HCO3 23.4 mmol/L (22.0-26.0); POC HEMOGLOBIN 10.2 g/dL (14.0-18.0); POC POTASSIUM 4.1 mmol/L (3.5-5.1); POC SODIUM 140 mmol/L (136-145); POC pCO2 37.7 mmHg (35.0-45.0); POC pH 7.402 (7.360-7.450)
[2016-08-19 14:27] LABS: POC BE -2 mmol/L (-2.0 to +3.0); POC CA IONIZED 4.2 mg/dL (4.5-5.3); POC FiO2 100 %; POC GLUCOSE 113 mg/dL (70-99); POC HCO3 23.8 mmol/L (22.0-26.0); POC HEMOGLOBIN 11.2 g/dL (14.0-18.0); POC POTASSIUM 4.2 mmol/L (3.5-5.1); POC SODIUM 138 mmol/L (136-145); POC pCO2 45.8 mmHg (35.0-45.0); POC pH 7.324 (7.360-7.450)
[2016-08-19 14:58] LABS: HEMATOCRIT 39.1 % (42.0-52.0); HEMOGLOBIN 13.4 gm/dL (14.0-18.0); MCH 30.9 pg (26.0-34.0); MCHC 34.3 g/dL (28.0-37.0); RBC 4.35 mil/uL (4.50-6.00); RDW 13.7 % (10.5-14.5); WBC 12.1 thou/uL (4.0-11.0)
[2016-08-19 15:00] LABS: ABG SAMPLE TYPE ARTERIAL; BE(vivo) -6.8 mmol/L (-2 to +3); HCO3 18.7 mmol/L (22.0-26.0); LACTATE 1.21 mmol/L (0.5-2.0); O2(CT) 17.4 mL/dL (15.0-23.0); O2Hb 93.9 % (92.0-98.0); PCO2 37.3 mmHg (35.0-45.0); PO2 86.2 mmHg (80.0-100.0); pH 7.318 (7.360-7.450); sO2 95.9 % (92.0-98.0); tCO2 19.8 mmol/L (24.0-30.0)
[2016-08-19 15:01] LABS: STICK SITE LINE; TIDAL VOLUME 600 ml
[2016-08-19 15:05] LABS: CALCIUM 7.7 mg/dL (8.5-10.1); CREATININE 0.9 mg/dL (0.7-1.3); POTASSIUM 3.9 mmol/L (3.5-5.1)
[2016-08-19 16:20] LABS: ABG COMMENT CPAP; ABG SAMPLE TYPE ARTERIAL; LACTATE 1.32 mmol/L (0.5-2.0); O2(CT) 18.5 mL/dL (15.0-23.0); O2Hb 94.9 % (92.0-98.0); PCO2 41.4 mmHg (35.0-45.0); PO2 89.5 mmHg (80.0-100.0); Pressure Support 8 cm H20; STICK SITE LINE; pH 7.302 (7.360-7.450); sO2 96.1 % (92.0-98.0); tCO2 21.3 mmol/L (24.0-30.0)
[2016-08-19 17:01] LABS: ABG SAMPLE TYPE ARTERIAL; BE(vivo) -6.4 mmol/L (-2 to +3); Face Shield 60 %; HCO3 18.4 mmol/L (22.0-26.0); LACTATE 1.18 mmol/L (0.5-2.0); O2Hb 95.6 % (92.0-98.0); PCO2 34.6 mmHg (35.0-45.0); STICK SITE LINE; pH 7.344 (7.360-7.450); tCO2 19.5 mmol/L (24.0-30.0)
[2016-08-19 18:25] LABS: HEMATOCRIT 39.5 % (42.0-52.0); HEMOGLOBIN 13.5 gm/dL (14.0-18.0); MCH 30.6 pg (26.0-34.0); MCHC 34.2 g/dL (28.0-37.0); MCV 89.4 fL (80.0-100.0); RBC 4.42 mil/uL (4.50-6.00); RDW 13.5 % (10.5-14.5); WBC 17.3 thou/uL (4.0-11.0)
[2016-08-19 18:35] LABS: CALCIUM 7.9 mg/dL (8.5-10.1); CREATININE 1.1 mg/dL (0.7-1.3); POTASSIUM 4.6 mmol/L (3.5-5.1)
[2016-08-20 05:44] LABS: HEMATOCRIT 38.3 % (42.0-52.0); MCH 30.7 pg (26.0-34.0); MCV 90.2 fL (80.0-100.0); RBC 4.24 mil/uL (4.50-6.00); RDW 13.5 % (10.5-14.5); WBC 12.3 thou/uL (4.0-11.0)
[2016-08-20 05:55] LABS: CALCIUM 7.9 mg/dL (8.5-10.1); CREATININE 1.3 mg/dL (0.7-1.3); POTASSIUM 4.7 mmol/L (3.5-5.1)
[2016-08-20 10:22] LABS: ABG SAMPLE TYPE ARTERIAL; LACTATE 2.86 mmol/L (0.5-2.0); O2(CT) 16.7 mL/dL (15.0-23.0); O2Hb 91.9 % (92.0-98.0); PCO2 29.8 mmHg (35.0-45.0); PO2 63.3 mmHg (80.0-100.0); STICK SITE LINE; pH 7.444 (7.360-7.450); sO2 93.4 % (92.0-98.0); tCO2 20.9 mmol/L (24.0-30.0)
[2016-08-21] VITALS (14 sets, daily range): BP systolic 96–138; BP diastolic 65–89
[2016-08-21 06:00] LABS: HEMATOCRIT 35.1 % (42.0-52.0); HEMOGLOBIN 12.1 gm/dL (14.0-18.0); MCH 31.4 pg (26.0-34.0); MCHC 34.6 g/dL (28.0-37.0); MCV 90.9 fL (80.0-100.0); RBC 3.86 mil/uL (4.50-6.00); WBC 11.4 thou/uL (4.0-11.0)
[2016-08-21 06:10] LABS: CALCIUM 8.1 mg/dL (8.5-10.1); CREATININE 0.9 mg/dL (0.7-1.3); POTASSIUM 4.5 mmol/L (3.5-5.1)
[2016-08-21 12:23] LABS: URINE BILIRUBIN NEGATIVE (Negative); URINE BLOOD 3+ (Negative); URINE COLOR YELLOW; URINE GLUCOSE-RANDOM* NEGATIVE (Negative); URINE KETONES TRACE (Negative); URINE LEUKOCYTES-REFLEX NEGATIVE (Negative); URINE PROTEIN (DIPSTICK) 1+ (Negative); URINE SPECIFIC GRAVITY 1.025 (1.003-1.035); URINE UROBILINOGEN 0.2 E.U./dl (0.2-1.0)
[2016-08-21 12:34] LABS: AMORPHOUS URATES Many /LPF (None Seen); URINE RBC >20 Many /HPF (0-2)
[2016-08-21 12:35] LABS: CASTS None Seen /LPF (None Seen); SQUAMOUS None Seen /LPF (0-3); URINE WBC-REFLEX None Seen /HPF (0-5)
[2016-08-22] VITALS (15 sets, daily range): BP systolic 80–158; BP diastolic 46–95
[2016-08-23 00:46] VITALS: BP 134/79
[2016-08-23 03:00] LABS: HEMATOCRIT 36.9 % (42.0-52.0); HEMOGLOBIN 12.7 gm/dL (14.0-18.0); MCH 31.4 pg (26.0-34.0); MCHC 34.5 g/dL (28.0-37.0); MCV 90.9 fL (80.0-100.0); RBC 4.06 mil/uL (4.50-6.00); RDW 13.5 % (10.5-14.5); WBC 10.7 thou/uL (4.0-11.0)
[2016-08-23 03:12] LABS: CREATININE 0.9 mg/dL (0.7-1.3); POTASSIUM 3.7 mmol/L (3.5-5.1)
[2016-08-23 05:21] VITALS: BP 152/69
[2016-08-23 07:25] VITALS: BP 155/87
[2016-08-23 11:55] VITALS: BP 105/51
[2016-08-23 16:10] VITALS: BP 141/80
[2016-08-23 20:36] VITALS: BP 126/78
[2016-08-24 04:11] VITALS: BP 143/74
[2016-08-24 05:17] LABS: HEMATOCRIT 36.5 % (42.0-52.0); HEMOGLOBIN 12.7 gm/dL (14.0-18.0); MCH 31.5 pg (26.0-34.0); MCHC 34.7 g/dL (28.0-37.0); MCV 90.7 fL (80.0-100.0); RBC 4.03 mil/uL (4.50-6.00); RDW 13.6 % (10.5-14.5); WBC 8.4 thou/uL (4.0-11.0)
[2016-08-24 07:10] VITALS: BP 149/84
[2016-08-24] MEDS ORDERED: COZAAR 50 MG TA50 M2 PO (08:20)
[2016-08-24] MEDS ORDERED: PACERONE 200 M200 M1 PO (08:20)
[2016-08-24 11:05] VITALS: BP 149/68
[2016-08-24 13:59] VITALS: BP 149/84
[2016-08-24 14:24] VITALS: BP 149/84
== END 2016-08-24 15:57 | disposition home health service (06) | DRG 235 ==
LOC: ER 21:59 → EROBS 23:57 → ICU 23:57 → 2N 08-22 15:22
PROVIDERS: Emergency Medicine; Hospitalist; Nurse Practitioner; Nurse Practitioner Acute Care; Nurse Practitioner Gerontology; Physician Assistant; Surgery Vascular Surgery; Thoracic Surgery (Cardiothoracic Vascular Surgery)
PROC: 5A09457 Assistance with Respiratory Ventilation, 24-96 Consecutive Hours, Continuous Positive Airway Pressure (ICD-10-PCS; principal; 2016-08-17)
PROC: 021209W Bypass Coronary Artery, Three Arteries from Aorta with Autologous Venous Tissue, Open Approach (ICD-10-PCS; 2016-08-19)
PROC: 5A1221Z Performance of Cardiac Output, Continuous (ICD-10-PCS; 2016-08-19)
PROC: 02100Z9 Bypass Coronary Artery, One Artery from Left Internal Mammary, Open Approach (ICD-10-PCS; 2016-08-19)
PROC: 06BQ0ZZ Excision of Left Saphenous Vein, Open Approach (ICD-10-PCS; 2016-08-19)
DX: I21.4 Non-ST elevation (NSTEMI) myocardial infarction (principal); I50.23 Acute on chronic systolic (congestive) heart failure; G92 Toxic encephalopathy; J96.90 Respiratory failure, unspecified, unspecified whether with hypoxia or hypercapnia; I42.9 Cardiomyopathy, unspecified; J98.11 Atelectasis; I11.0 Hypertensive heart disease with heart failure; I25.10 Atherosclerotic heart disease of native coronary artery without angina pectoris; E11.65 Type 2 diabetes mellitus with hyperglycemia; F03.90 Unspecified dementia, unspecified severity, without behavioral disturbance, psychotic disturbance, mood disturbance, and anxiety; J44.9 Chronic obstructive pulmonary disease, unspecified; E78.00 Pure hypercholesterolemia, unspecified; K21.9 Gastro-esophageal reflux disease without esophagitis; I16.0 Hypertensive urgency; D69.6 Thrombocytopenia, unspecified; G47.33 Obstructive sleep apnea (adult) (pediatric); E78.5 Hyperlipidemia, unspecified; N40.0 Benign prostatic hyperplasia without lower urinary tract symptoms; Z87.01 Personal history of pneumonia (recurrent); Z86.73 Personal history of transient ischemic attack (TIA), and cerebral infarction without residual deficits; Z87.891 Personal history of nicotine dependence; Z90.49 Acquired absence of other specified parts of digestive tract; Z79.4 Long term (current) use of insulin; Z82.49 Family history of ischemic heart disease and other diseases of the circulatory system; Z82.3 Family history of stroke; Z83.6 Family history of other diseases of the respiratory system
CPT/HCPCS: 10078; 10081; 47000; 47001; 47002; 48888; 50010; 50249; 50409; 50456; 50668; 51301; 52131; 52259; 52314; 53327; 53358; 54118; 56524; 56525; 56526; 56527; 56528; 56531; 56534; 56660; 57093; 62110; 62950; 64029; 65002; 65003; 65020; 65043; 65090

== ENCOUNTER → 2019-03-02 | Outpatient (CLI) | payer OTHER ==
[~2019-03-02] MED LIST changes: +COZAAR 50 MG TA50 M2 PO; +LASIX 40 MG TAB40 M2 PO; +PACERONE 200 M200 M1 PO
== END ==
LOC: MRI 03-01 09:08
DX: R90.82 White matter disease, unspecified (principal); E78.2 Mixed hyperlipidemia; Z86.73 Personal history of transient ischemic attack (TIA), and cerebral infarction without residual deficits

== ENCOUNTER → 2020-01-03 | Outpatient (CLI) | payer OTHER | LOC: SJCVCIMAG 09:05 | PROVIDERS: ATTEND Internal Medicine Cardiovascular Disease | DX: I08.3 Combined rheumatic disorders of mitral, aortic and tricuspid valves (principal); I77.810 Thoracic aortic ectasia; R94.31 Abnormal electrocardiogram [ECG] [EKG]; I25.810 Atherosclerosis of coronary artery bypass graft(s) without angina pectoris; I11.0 Hypertensive heart disease with heart failure; I50.22 Chronic systolic (congestive) heart failure; E78.00 Pure hypercholesterolemia, unspecified; J44.9 Chronic obstructive pulmonary disease, unspecified; K21.9 Gastro-esophageal reflux disease without esophagitis; Z79.4 Long term (current) use of insulin; Z79.899 Other long term (current) drug therapy; Z95.1 Presence of aortocoronary bypass graft; Z87.891 Personal history of nicotine dependence ==

== ENCOUNTER → 2020-07-04 | Outpatient (CLI) | payer OTHER | LOC: SJCVCIMAG 07:35 | PROVIDERS: ATTEND Internal Medicine Cardiovascular Disease | DX: I49.3 Ventricular premature depolarization (principal); I21.4 Non-ST elevation (NSTEMI) myocardial infarction; I25.10 Atherosclerotic heart disease of native coronary artery without angina pectoris; I35.1 Nonrheumatic aortic (valve) insufficiency; I11.0 Hypertensive heart disease with heart failure; I50.9 Heart failure, unspecified; E78.00 Pure hypercholesterolemia, unspecified; J44.9 Chronic obstructive pulmonary disease, unspecified; K21.9 Gastro-esophageal reflux disease without esophagitis; G47.33 Obstructive sleep apnea (adult) (pediatric); E11.9 Type 2 diabetes mellitus without complications; E78.2 Mixed hyperlipidemia; Z95.1 Presence of aortocoronary bypass graft; Z79.899 Other long term (current) drug therapy; Z79.4 Long term (current) use of insulin; Z79.82 Long term (current) use of aspirin; Z87.891 Personal history of nicotine dependence; Z72.89 Other problems related to lifestyle ==

== ENCOUNTER → 2021-01-21 | Outpatient (CLI) | payer OTHER | LOC: SJCVC 09:47 | PROVIDERS: ATTEND Internal Medicine Cardiovascular Disease | DX: R94.31 Abnormal electrocardiogram [ECG] [EKG] (principal); I25.10 Atherosclerotic heart disease of native coronary artery without angina pectoris; I35.1 Nonrheumatic aortic (valve) insufficiency; E78.00 Pure hypercholesterolemia, unspecified; Z79.4 Long term (current) use of insulin; I11.0 Hypertensive heart disease with heart failure; I50.9 Heart failure, unspecified; J44.9 Chronic obstructive pulmonary disease, unspecified; K21.9 Gastro-esophageal reflux disease without esophagitis; G47.33 Obstructive sleep apnea (adult) (pediatric); R41.3 Other amnesia; Z79.82 Long term (current) use of aspirin; Z79.899 Other long term (current) drug therapy; Z87.891 Personal history of nicotine dependence ==